=== PATIENT | male | born 2005 | race Caucasian/White ===

== ENCOUNTER 2024-02-18 01:07 | Emergency (ER) | payer SELFPAY | END 2024-02-18 01:32 | LOC: MW.ED 01:07 | DX: F41.9 Anxiety disorder, unspecified (principal); Z75.8 Other problems related to medical facilities and other health care; Z91.030 Bee allergy status | CPT/HCPCS: 99283 ==

== ENCOUNTER 2024-11-23 04:47 | Emergency (ER) | payer MEDICAID ==
[2024-11-23] MEDS: Acetaminophen 325 MG Tab PO ONE (04:58)
== END 2024-11-23 05:54 | disposition home or self-care (01) ==
LOC: MW.ED 04:47
DX: J02.0 Streptococcal pharyngitis (principal); Z88.8 Allergy status to other drugs, medicaments and biological substances; Z79.899 Other long term (current) drug therapy
CPT/HCPCS: 70360; 87651; 99283; A9270

== ENCOUNTER 2025-01-14 16:14 | Emergency (ER) | payer MEDICAID ==
[2025-01-14 16:46] LABS: APPEARANCE,URINE CLEAR; GLUCOSE,URINE NEGATIVE (NEGATIVE); OCCULT BLOOD,URINE NEGATIVE (NEGATIVE)
[2025-01-14 18:22] LABS: C. TRACHOMATIS BY PCR NOT DETECTED; N. GONORRHOEAE BY PCR NOT DETECTED
== END 2025-01-14 18:44 | disposition home or self-care (01) ==
LOC: MW.ED 16:14
DX: Z11.3 Encounter for screening for infections with a predominantly sexual mode of transmission (principal); Z91.030 Bee allergy status
CPT/HCPCS: 81001; 87491; 87591; 99282; 99283